=== PATIENT | female | born 1955 | race Caucasian/White ===

== ENCOUNTER → 2016-06-07 | Outpatient (CLI) | payer MEDICARE, MEDICAID ==
--- NOTE | 2016-06-08 09:36 | Diagnostic Imaging Report ---
INDICATION: Screening mammogram. COMPARISON: 12/14/2012. TECHNIQUE: Digital screening mammography was obtained with CAD. FINDINGS: Scattered fibroglandular densities are present. There is no mass or suspicious calcification. IMPRESSION: Stable screening mammogram. No malignancy. ACR BI-RADS Category 1: Negative. Result letter will be mailed to the patient. Note: At least 10% of breast cancer is not imaged by mammography. Dictated by: Dictated on workstation # [id number]
== END ==
LOC: RAD 14:19
PROVIDERS: ATTEND Family Medicine
DX: Z12.31 Encounter for screening mammogram for malignant neoplasm of breast (principal)

== ENCOUNTER → 2016-08-20 | Outpatient (CLI) | payer MEDICARE, MEDICAID ==
[2016-08-20 08:15] LABS: BASOPHILS % (AUTO) 0 % (0-2); EOSINOPHILS # (AUTO) 0.1 10^3uL; EOSINOPHILS % (AUTO) 3 % (0-4); LYMPHOCYTES # (AUTO) 1.8 X10^3; MEAN CORPUSCULAR HEMOGLOBIN 29.9 PG (26.0-34.0); MEAN CORPUSCULAR HGB CONC 32.6 g/dL (31.0-37.0); MEAN CORPUSCULAR VOLUME 92 FL (80-100); MEAN PLATELET VOLUME 10.2 FL (6.0-9.5); MONOCYTES # (AUTO) 0.5 X10^3; MONOCYTES % (AUTO) 12 % (3-11); NEUTROPHILS % (AUTO) 45 % (51-67); PLATELET COUNT 184 10^3uL (150-450); WHITE BLOOD COUNT 4.48 10^3uL (4.0-11.0)
[2016-08-20 08:19] LABS: CLARITY,URINE Clear; GLUCOSE, URINE (UA) Negative (Negative); LEUKOCYTE ESTERASE ,URINE Negative (Negative); PH,URINE 5.5 (5.0 - 8.0); UROBILINOGEN,URINE 0.2 mg/dL (0.2-1.0)
[2016-08-20 08:47] LABS: BILIRUBIN,URINE 1+ (Negative); COLOR,URINE Dark Yellow
[2016-08-20 08:48] LABS: RBC,URINE None Seen /HPF; URINE CENTRIFUGED VOLUME <10mL Unspun
[2016-08-20 09:26] LABS: ALBUMIN 4.3 g/dL (3.4-5.0); CALCULATED IONIZED CALCIUM 4.1 mg/dL (3.8-4.6); TOTAL PROTEIN 7.5 g/dL (6.4-8.5)
== END ==
LOC: LAB 08-19 14:36
PROVIDERS: ATTEND Family Medicine
DX: G62.0 Drug-induced polyneuropathy (principal); I51.9 Heart disease, unspecified; G47.19 Other hypersomnia; R53.83 Other fatigue; C81.48 Lymphocyte-rich Hodgkin lymphoma, lymph nodes of multiple sites; I10 Essential (primary) hypertension; I42.8 Other cardiomyopathies
CPT/HCPCS: 36415; 80053; 80061; 81003; 81015; 84443; 85025

== ENCOUNTER → 2016-10-25 | Outpatient (CLI) | payer MEDICARE, MEDICAID ==
[2016-10-25 13:20] LABS: MEAN CORPUSCULAR HEMOGLOBIN 30.6 PG (26.0-34.0); MEAN CORPUSCULAR HGB CONC 32.7 g/dL (31.0-37.0); MEAN CORPUSCULAR VOLUME 94 FL (80-100); MEAN PLATELET VOLUME 10.2 FL (6.0-9.5); PLATELET COUNT 192 10^3uL (150-450); WHITE BLOOD COUNT 6.73 10^3uL (4.0-11.0)
[2016-10-25 14:11] LABS: BAND NEUTROPHILS % 1 % (0-6); LYMPHOCYTES # 1.6 #; MONOCYTES # 0.4 #; MONOCYTES % 7 % (3-11); SEGMENTED NEUTROPHILS % 67 % (51-67)
[2016-10-25 14:12] LABS: EOSINOPHILS % 1 % (0-4); RBC MORPH NORMAL (NORMAL); TOTAL CELLS COUNTED 100
[2016-10-25 14:24] LABS: ALBUMIN 4.3 g/dL (3.4-5.0); ANION GAP 14.7 MEQ/L (3-15); CALCULATED IONIZED CALCIUM 4.1 mg/dL (3.8-4.6); TOTAL PROTEIN 7.5 g/dL (6.4-8.5)
== END ==
LOC: LAB 13:02
PROVIDERS: ATTEND Internal Medicine Hematology & Oncology
DX: C81.48 Lymphocyte-rich Hodgkin lymphoma, lymph nodes of multiple sites (principal)
CPT/HCPCS: 36415; 80053; 83615; 83735; 84100; 85007; 85027